=== PATIENT | female | born 1960 | race Native Hawaiian/Other Pacific Islander ===

== ENCOUNTER 2016-06-29 11:29 | Outpatient (CLI) | payer OTHER ==
[~2016-06-29 11:29] MED LIST: BENICAR HCT1 TA2 PO; CETI10TA PO
== END 2016-06-29 13:29 | disposition home or self-care (01) ==
LOC: US 11:29
DX: E07.89 Other specified disorders of thyroid (principal)

== ENCOUNTER 2016-07-22 08:27 | Outpatient (CLI) | payer OTHER | END 2016-07-22 19:06 | disposition home or self-care (01) | LOC: NM 08:27 | DX: E04.2 Nontoxic multinodular goiter (principal) | CPT/HCPCS: A9516 ==

== ENCOUNTER 2017-03-21 13:24 | Outpatient (CLI) | payer OTHER | END 2017-03-21 14:25 | disposition home or self-care (01) | LOC: RAD 13:24 | DX: M79.671 Pain in right foot (principal) ==

== ENCOUNTER 2017-08-16 09:50 | Outpatient (CLI) | payer BC | END 2017-08-16 22:53 | disposition home or self-care (01) | LOC: RAD 09:50 | DX: M79.672 Pain in left foot (principal) ==

== ENCOUNTER 2017-08-18 09:29 | Outpatient (CLI) | payer BC | END 2017-08-18 22:46 | disposition home or self-care (01) | LOC: RAD 09:29 | DX: R79.82 Elevated C-reactive protein (CRP) (principal); I25.10 Atherosclerotic heart disease of native coronary artery without angina pectoris ==

== ENCOUNTER 2017-08-29 12:11 | Outpatient (CLI) | payer BC | END 2017-08-29 20:05 | disposition home or self-care (01) | LOC: LABW 12:11 | DX: M10.072 Idiopathic gout, left ankle and foot (principal) | CPT/HCPCS: 36415; 84550 ==

== ENCOUNTER 2017-10-13 14:23 | Outpatient (CLI) | payer BC | END 2017-10-13 21:06 | disposition home or self-care (01) | LOC: RAD 14:23 | DX: Z01.810 Encounter for preprocedural cardiovascular examination (principal); Z01.811 Encounter for preprocedural respiratory examination; Z01.812 Encounter for preprocedural laboratory examination ==

== ENCOUNTER 2018-02-08 11:45 | Outpatient (CLI) | payer BC ==
[2018-02-08 12:25] LABS: PLATELET COUNT 236 K/uL (152-353)
== END 2018-02-08 21:01 | disposition home or self-care (01) ==
LOC: CT 11:45 → US 11:45
PROVIDERS: Nurse Practitioner Family
DX: N28.89 Other specified disorders of kidney and ureter (principal); R10.13 Epigastric pain
CPT/HCPCS: 36415; 80053; 82150; 83690; 85027; 93005; Q9963

== ENCOUNTER 2019-03-22 13:28 | Outpatient (CLI) | payer BC | END 2019-03-22 20:45 | disposition home or self-care (01) | LOC: LABW 13:28 | DX: E03.9 Hypothyroidism, unspecified (principal) | CPT/HCPCS: 36415; 84443 ==

== ENCOUNTER 2019-04-27 09:16 | Outpatient (CLI) | payer BC ==
[2019-04-27 09:45] LABS: PLATELET COUNT 189 K/uL (152-353)
[2019-04-27 09:59] LABS: POTASSIUM 4.3 mmol/L (3.6-5.2)
== END 2019-04-27 20:15 | disposition home or self-care (01) ==
LOC: LABW 09:16
PROVIDERS: Nurse Practitioner Family
DX: Z00.00 Encounter for general adult medical examination without abnormal findings (principal); I10 Essential (primary) hypertension; E11.9 Type 2 diabetes mellitus without complications; C64.1 Malignant neoplasm of right kidney, except renal pelvis; E04.9 Nontoxic goiter, unspecified; Z90.5 Acquired absence of kidney; Z90.09 Acquired absence of other part of head and neck; R53.81 Other malaise; Z79.899 Other long term (current) drug therapy
CPT/HCPCS: 36415; 80053; 80061; 83036; 84439; 84443; 85027

== ENCOUNTER 2020-11-11 14:40 | Outpatient (CLI) | payer BC | END 2020-11-11 23:59 | disposition home or self-care (01) | LOC: MRI 14:40 | PROVIDERS: ATTEND Nurse Practitioner | DX: M54.16 Radiculopathy, lumbar region (principal) ==

== ENCOUNTER 2021-08-13 13:04 | Outpatient (CLI) | payer BC | END 2021-08-13 20:19 | disposition home or self-care (01) | LOC: RESP 13:04 | PROVIDERS: ATTEND Nurse Practitioner Family | DX: G56.03 Carpal tunnel syndrome, bilateral upper limbs (principal); G56.33 Lesion of radial nerve, bilateral upper limbs | CPT/HCPCS: 95885; 95913 ==